=== PATIENT | male | born 1990 | race Two or more races ===

== ENCOUNTER 2017-09-30 16:48 | Emergency (ER) | payer OTHER ==
[~2017-09-30] VITALS: Ht 175.3 cm; Wt 68.0 kg
[2017-09-30] MEDS ORDERED: ONDANSETRON HCL/PF 4 MG/2 ML VIAL ONE (16:55)
--- NOTE | 2017-09-30 16:55 | NUR ---
PT PAWAN FROM A FRIENDS HOUSE. HERE FOR WITNESSED SEIZURE. 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 PLACED ON SEIZURE PRECAUTION. PLACED ON MONITOR. C/O N/V. WAS GIVEN ZOFRAN 4MG IVP IN THE FIELD STATES STILL FEELS NAUSEATED. AWAITING MD MORENO.
--- NOTE | 2017-09-30 16:57 | NUR ---
DR DE LA O AT BEDSIDE FOR EVAL.
[2017-09-30] MEDS ORDERED: CARBAMAZEPINE 200 MG TABLET ONE ×2 (16:59→18:18)
[2017-09-30] MEDS ORDERED: CARBAMAZEPINE 200 MG TABLET PO ONE (17:00)
[2017-09-30] MEDS ORDERED: ONDANSETRON HCL/PF 4 MG/2 ML VIAL IV ONE (17:00)
--- NOTE | 2017-09-30 17:02 | NUR ---
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
[2017-09-30 17:19] LABS: LYMPHOCYTES # (AUTO) 2.3 /CMM (0.8-4.8); LYMPHOCYTES % (AUTO) 13.4 % (20.0-44.0); MONOCYTES # (AUTO) 0.7 /CMM (0.1-1.30)
[2017-09-30 17:22] LABS: CALCIUM, SERUM 8.9 mg/dL (8.5-10.1)
[2017-09-30 17:34] LABS: BASOPHILS % (AUTO) 0.1 % (0.0-2.0); EOSINOPHILS % (AUTO) 0.1 % (0.0-6.0); MEAN CORPUSCULAR HEMOGLOBIN 21 PG (26.0-33.0); MEAN CORPUSCULAR HGB CONC 30 g/dl (31.0-36.0); MEAN CORPUSCULAR VOLUME 70 fL (80-96); MONOCYTES % (AUTO) 4.2 % (2.0-12.0); NEUTROPHILS % (AUTO) 82.2 % (43.0-81.0); PLATELET COUNT (AUTO) 198 /CMM (150-450); RDW COEFFICIENT OF VARIATION 18.7 (11.5-15.0); RED BLOOD CELL COUNT(AUTO) 5.94 MIL/uL (4.5-6.0)
[2017-09-30 17:36] LABS: HEMATOCRIT 42 % (39-51); HEMOGLOBIN 12.6 g/dL (13.5-17.5)
--- NOTE | 2017-09-30 17:36 | NUR ---
DR DE LA O MADE AWARE OF PT VOMITTED THE TEGRETOL.
[2017-09-30] MEDS ORDERED: METOCLOPRAMIDE HCL 10 MG/2 ML VIAL ONE (17:41)
[2017-09-30] MEDS ORDERED: METOCLOPRAMIDE HCL 10 MG/2 ML VIAL IV ONE (18:00)
[2017-09-30 18:15] LABS: LYMPHOCYTES % (MANUAL) 11 % (16-48); MONOCYTES % (MANUAL) 4 % (0-11.0); NEUTROPHILS % (MANUAL) 85 (42-76)
--- NOTE | 2017-09-30 18:25 | NUR ---
TEGRETOL 400MG GIVEN PO PER BRIDGETTE DE LA O VERBAL ORDER. WAS GIVEN TEGRETOL 400MG PO EARLIER BUT PT VOMITTED. WAS GIVEN REGLAN IVP AND STATES WAS FEELING BETTER.
[2017-09-30 18:35] VITALS: BP 138/75
--- NOTE | 2017-09-30 18:35 | NUR ---
Patient discharged to home in stable condition. Written and verbal after care instructions given. Patient verbalizes understanding of instruction.IV removed. Catheter intact and site benign. Pressure and 4x4 applied to site. No bleeding noted.
== END 2017-09-30 18:36 | disposition home or self-care (01) ==
LOC: ER 16:50
DX: G40.909 Epilepsy, unspecified, not intractable, without status epilepticus (principal); F12.10 Cannabis abuse, uncomplicated
CPT/HCPCS: 36415; 80048; 85025; 96374; 96375; 99284; A4216; A4606; J2405; J2765; Z7610